=== PATIENT | male | born 1995 | race Caucasian/White ===

== ENCOUNTER 2018-08-14 19:07 | Emergency (ER) | payer OTHER ==
[~2018-08-14] VITALS: Ht 160 cm; Wt 78.0 kg
[~2018-08-14 19:07] MED LIST: MEDIDATE; METADATE PO
[2018-08-14 19:09] VITALS: BP 141/92; TEMP 98.4
[2018-08-14] MEDS ORDERED: AMOXICILLIN 50500 MG PO (20:31)
[2018-08-14 21:02] VITALS: PULSE 105
== END 2018-08-14 21:09 | disposition home or self-care (01) ==
LOC: COL.ER 19:07
DX: J02.0 Streptococcal pharyngitis (principal); F90.9 Attention-deficit hyperactivity disorder, unspecified type; F17.210 Nicotine dependence, cigarettes, uncomplicated; F12.90 Cannabis use, unspecified, uncomplicated; Z90.89 Acquired absence of other organs
CPT/HCPCS: J7030